=== PATIENT | male | born 1980 | race African-American/Black ===

== ENCOUNTER 2020-09-11 21:02 | Emergency (ER) | payer SELFPAY | END 2020-09-11 21:39 | LOC: ERS 21:02 | DX: F15.129 Other stimulant abuse with intoxication, unspecified (principal) | CPT/HCPCS: 99283 ==

== ENCOUNTER 2020-10-15 23:13 | Emergency (ER) | payer SELFPAY ==
[2020-10-15] MEDS ORDERED: Acetaminophen 325 MG TAB ONE (23:47)
[2020-10-15] MEDS ORDERED: Ibuprofen 800 MG TAB ONE (23:47)
--- NOTE | 2020-10-16 00:03 | RAD ---
XR Knee Lt 4 View STANDARD History: Knee pain Comparison: None. Findings: Mild-moderate joint effusion. No acute displaced fracture or malalignment. Remainder the so ft tissues are unremarkable. Impression: Mild-moderate joint effusion without acute fracture appreciated. Small lateral tibial rim osteophytes. If there is relatively recent injury and concern for acute internal derangement, MRI would be recommended nonemergently.
== END 2020-10-15 23:58 | disposition home or self-care (01) ==
LOC: ERS 23:13
DX: S83.412A Sprain of medial collateral ligament of left knee, initial encounter (principal); F17.210 Nicotine dependence, cigarettes, uncomplicated; X58.XXXA Exposure to other specified factors, initial encounter

== ENCOUNTER 2020-10-24 18:38 | Emergency (ER) | payer OTHER, SELFPAY | END 2020-10-24 20:30 | disposition home or self-care (01) | LOC: ERS 18:38 | DX: T40.991A Poisoning by other psychodysleptics [hallucinogens], accidental (unintentional), initial encounter (principal) | CPT/HCPCS: 99283 ==

== ENCOUNTER 2023-09-07 15:20 | Emergency (ER) | payer SELFPAY | END 2023-09-07 15:36 | disposition home or self-care (01) | LOC: ERS 15:20 | DX: F19.90 Other psychoactive substance use, unspecified, uncomplicated (principal); Z87.891 Personal history of nicotine dependence | CPT/HCPCS: 99284 ==